=== PATIENT | female | born 1990 | race Caucasian/White ===

== ENCOUNTER 2016-08-03 00:01 | Emergency (ER) | payer MEDICARE, MEDICAID ==
[~2016-08-03] VITALS: Ht 167.6 cm; Wt 104.3 kg
[~2016-08-03 00:01] MED LIST: ALBUTEROL-200 PUFFS/ INH; B/P PILL PO; CIPRO 500MG TA500 MG PO; CLARITIN 10MG T10 MG PO; KEFLEX 500MG.500 MG PO; MACROBID100 M3 PO; METOPROLOL25 MG PO; MONTELUKAST SOD10 MG PO; MOTRIN 400MG.400 MG PO; PAXIL20 MG PO; PERCOCET 5/3251 EACH PO; PHENERGAN 25MG.25 M1 PO; PHENERGAN W/CO473 ML PO; PHENERGAN25 M3 PO; PREDNISONE 20MG20 MG PO; PRENATAL PLUS1 TA1 PO; PROAIR HFA0.09 MG/AC IH; SERTRALINE 50MG50 MG PO
--- NOTE | 2016-08-03 00:32 | Emergency Room Report ---
History of Present Illness Time Seen by [id number] Presenting Problem in Triage Pt arrived:Walked Presenting Problem:PT STATES HER STOMACH HAS BEEN "SWELLING" AND SHE HAS BEEN COUGHING UP BLOOD. PT STATES THAT HER STOMACH HAS BEEN BOTHERING HER FOR A COUPLE OF MONTHS AND THE COUGHING UP BLOOD STARTED THIS WEEK. 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 N Clinical Suspician of Infection? N Mental Status: 1 - Regular (Normal Baseline) Sepsis Risk:Low Sepsis Risk Have you (or family members/close friends) recently traveled outside the [place]? N If Yes, where/when: Have you had exposure to infectious disease within the past month? N TB? Other? Specify: Source patient, RN notes reviewed, family, old records Exam Limitations no limitations Comment pt with mid abd ppain over the last few momths with no vomiting Cardiac Chest Pain Chest pain indicative of cardiac No Timing/Duration this evening Severity moderate ALLERGIES Coded Allergies: Penicillins (Severe, I-HIVES 08/03/16) Home Medications Reported Medications Metoprolol Tartrate (Metoprolol) 1 TAB PO DAILY Sertraline Hcl (Sertraline 50MG) 25 MG PO DAILY #30 Albuterol Sulfate (Proair Hfa) 1 PUFF IH Q6HP PRN ALLERGIES #9 MULTIVIT-MIN W/FE-FA ( Multivitamin Tablet) 1 TAB PO DAILY History Medical History General CAD? No Angina: No MA: No Hypertension? Yes Hyperlipidemia? No CHF? No DVT? No PE? No COPD? No Asthma? Yes Anemia? No GERD? No Gastric ulcers? No GI Bleed? No Hernia? No Thyroid Problems? No Hypothyroidism? No CVA? No Seizures? No Diabetes? No Renal Insuffiency? No End Stage Renal Disease? No UTI? No Stones? No BPH? No GB Disease: No Nephritic Syndrome? No Asplenia? No Hepatitis? No Sickle Cell Disease? No Arthritis? No Migraines? No Cataracts? No Glaucoma? No MRSA? No HIV? No TB? No Anxiety? No Depression? Yes Cancer? No More? No Immunization Hx DT/Tetanus 1-4 YRS Surgical Hx Previous Surgery?Y EAR TUBES BILAT Tonsils [employer]ARD [employer]OR Hx LMP Now Social History Smoking Hx Smoker: Never Smoker Tobacco: No Type N/A Are you/the child exposed to second-hand smoke: No Alcohol Alcohol: No Drugs none Review of Systems All Other Systems Reviewed and Negative Constitutional denies fever Eyes denies drainage ENT denies: ear pain, epistaxis, throat pain. Respiratory denies cough, denies shortness of breath Cardiovascular denies chest pain, denies syncope Gastrointestinal see HPI, abdominal pain, denies diarrhea, denies vomiting Genitourinary denies: dysuria, frequency, hesitancy, hematuria. Musculoskeletal denies back pain, denies joint pain, denies neck pain Skin denies rash Psychiatric/Neurological denies headache, denies seizure Physical Exam Vital Signs Vital Signs Date Time Temp Pulse Resp B/P Pulse O2 O2 Flow FiO2 Ox Delivery Rate 08/03 0004 97.6 79 18 137/82 99 - WBC >12,000 or <4,000 or 10% bands? 2 or more SIRS Criteria Met? B/P:137/82 MAP:100 Creatinine >2.0? UA output<0.5ml/kg/hr for 2 hrs? Platelet count >100,000? Lactate >2.0mmol/1? INR >1.2 or PTT > than 60 sec? Evidence of Organ Dysfunction? Provider documented clinical suspician of infection? N Sepsis Criteria Count: 0 Sepsis Risk: Low Sepsis Risk General Appearance no apparent distress Eye Exam - bilateral eye PERRL, bilateral eye EOMI Ear, Nose, Throat normal ENT inspection Neck supple Respiratory Status No: respiratory distress. 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 No Results/Orders Laboratory Tests 08/03/16 0025: Sodium 140, Potassium 4.0, Chloride 107, Carbon Dioxide 28, BUN 13, Creatinine 0.8, Estimated Creat Clear 179, Estimated GFR (MDRD) 88, Glucose 81, Calcium 8.7 , Total Bilirubin 0.2, AST 9 L, ALT 29, Alkaline Phosphatase 71, Total Protein 7.5, Albumin 3.4, Globulin 4.1 H, Albumin/Globulin Ratio 0.8 L, Amylase 48, Lipase 91, WBC 7.0, RBC 4.62, Hgb 13.2, Hct 39.8, MCV 86.1, RDW 15.8, Plt Count 274, Gran % 65.9, Gran # 4.6, Lymphocytes % 29.4, Monocytes % 4.7, Lymphocytes # 2.1, Monocytes # 0.3, PUBS MCHC 33.2, MCH 28.6 08/03/16 0010: Urine Color RED, Urine Appearance CLOUDY, Urine pH 6.0, Ur Specific Humble 1.015, Urine Protein TRACE H, Urine Ketones NEGATIVE, Urine Blood 3+ H, Urine Nitrate NEGATIVE, Urine Bilirubin NEGATIVE, Urine Urobilinogen 0.2, Ur Leukocyte Esterase TRACE H, Urine RBC TNTC, Urine WBC OCC, Ur Squamous Epith Cells 5-10, Urine Glucose NEGATIVE Current Medication Orders Sig/Donna Start time Last Medication Dose Route Stop Time Status Admin Sodium Chloride 10 ML PRN PRN 08/03 14 AC IV 08/04 12 Orders Procedure Date/time Status DIET-NOTHING BY MOUTH 08/03 B Active CHEST(2 VIEWS-NOT PORTABLE) 08/[address] ABD & PELVIS W/O CONTRAST 08/[address] ABD/PELVIS REQ 08/03 12 Active IV SALINE LOCK 08/03 12 Active URINALYSIS/COMPLETE 08/03 12 Complete URINE 08/03 12 Complete LIPASE 08/03 12 Complete CBC WITH AUTO DIFF 08/03 12 Complete CHEM 12 PROFILE 08/03 12 Complete AMYLASE 08/03 12 Complete XRAY/CT/US XRAY/CT/US CT abdomen, pelvis CT interpretation by discussed w/radiologist Time results known: 227 CT Results normal/NAD Departure Departure Time of Disposition 227 Disposition DC Home or Self Care(routine) Clinical Impression Primary Impression: Abdominal pain Qualifiers: Abdominal location: periumbilical Qualified Code: R10.33 - Periumbilical pain Condition STABLE Referrals Juan Antonio Eubanks MD (Family) Patient Instructions DI for Abdominal Pain-Adult Additional Instructions fluids and see pcp for follow up Discharge Counseling Counseled pt/family regarding diagnosis, test results, follow up needs ED Critical Care Critical Care No at 0230
[2016-08-03 00:54] LABS: URINE BILIRUBIN - DIPSTICK NEGATIVE (NEG); URINE BLOOD 3+ (NEG)
[2016-08-03 00:57] LABS: HEMOGLOBIN 13.2 g/dL (12.2-16.2)
[2016-08-03 00:58] LABS: LYMPH # 2.1 K/mm3 (0.7-4.5); LYMPH % 29.4 % (10-50.0)
[2016-08-03 02:48] VITALS: BP 137/82
--- NOTE | 2016-08-03 08:45 | RADIOLOGY REPORT PS360 ---
CHEST(2 VIEWS-NOT PORTABLE) HISTORY: COUGH ORDERING PHYSICIAN: Heidi Naylor MD PATIENT AGE: 26 years COMPARISON: None available FINDINGS: The cardiomediastinal silhouette and pulmonary vascularity are within normal limits. The lungs are clear without infiltrates, suspicious nodules, or pleural effusions. No acute bony abnormalities. IMPRESSION: Negative chest, no acute finding
--- NOTE | 2016-08-03 09:36 | RADIOLOGY REPORT PS360 ---
CT ABD PELVIS W/O CONTRAST CLINICAL INDICATION: Bloating and abdominal pain, periumbilical pain ABD PAIN ORDERING PHYSICIAN: Heidi Naylor MD PATIENT AGE: 26 years COMPARISON: None TECHNIQUE: Axial images obtained with sagittal and coronal reformats. PROCEDURE: Oral Contrast: None IV Contrast: None . FINDINGS: Lower thorax: No acute finding ABDOMEN: Liver: No masses or biliary dilatation. Gallbladder: Nondistended. No radio opaque stones. Pancreas: No masses or peripancreatic fluid collections. Spleen: Unremarkable. Adrenals: Unremarkable Kidneys/ureters: No masses. No renal calculi. No hydronephrosis. No perinephric fluid collections. No ureteral dilatation or obvious ureteral calculi. Stomach bowel: Nondistended. No obvious mass or thickening. Appendix: No evidence of appendicitis. PELVIS: Reproductive: Unremarkable Bladder: Nondistended. No obvious stones or masses. ABDOMEN & PELVIS: Peritoneum: No abnormal fluid collections. No obvious inflammatory changes. No free air. Lymph nodes: No enlarged lymph nodes apparent. Vasculature: No evidence of abdominal aortic aneurysm. No retroperitoneal hemorrhage evident. Bones: No acute fracture IMPRESSION: Negative, no acute intra-abdominal or pelvic pathology apparent
== END 2016-08-03 02:51 | disposition home or self-care (01) ==
LOC: ER 00:01
PROVIDERS: Emergency Medicine
DX: R10.33 Periumbilical pain (principal); I10 Essential (primary) hypertension

== ENCOUNTER → 2017-04-04 | Outpatient (CLI) | payer MEDICARE, MEDICAID ==
[2017-04-04 18:54] LABS: HEMOGLOBIN 13.2 g/dL (12.2-16.2); LYMPH % 26.3 % (10-50.0)
[2017-04-04 19:14] LABS: BUN 9 mg/dL (7-18)
[2017-04-04 19:35] LABS: GFR (ESTIMATED) 87 ML/MIN (59-)
== END ==
LOC: LAB 17:04
PROVIDERS: Nurse Practitioner Family
DX: R53.83 Other fatigue (principal); H66.40 Suppurative otitis media, unspecified, unspecified ear; J45.909 Unspecified asthma, uncomplicated; I10 Essential (primary) hypertension; Z79.899 Other long term (current) drug therapy